=== PATIENT | female | born 1945 | race Caucasian/White ===

== ENCOUNTER 2018-01-29 19:21 | Observation (INO) | payer BC ==
[2018-01-29 20:39] LABS: INR 1.03 (0.77-1.02)
[2018-01-29 20:59] LABS: ABS Basophils 0 10^3/ul (0-0.2); ABS Eosinophils 0 10^3/ul (0-0.6); ABS Lymphocytes 1.1 10^3/ul (1.0-4.8); ABS Monocytes 0.3 10^3/ul (0-0.8); ABS Neutrophils 1.8 10^3/ul (1.5-7.7); ABS Nucleated RBC 0 10^3/ul; Eosinophil % 1.5 % (0-6); Hematocrit 34 % (35-47); Hemoglobin 11.5 g/dl (12.0-16.0); Lymphocyte % 33.6 % (25-47); Mean Corpuscular HGB Conc 34 g/dl (31-36); Mean Corpuscular Hemoglobin 30 pg (27-31); Mean Corpuscular Volume 90 fL (80-97); Mean Platelet Volume 8.9 um3 (7.4-10.4); Nucleated Red Blood Cells % 0.2; Platelet Count 95 10^3/ul (150-450); Red Blood Count 3.78 10^6/ul (4.0-5.4); Red Cell Distribution Width 15 % (10.5-15); White Blood Count 3.2 10^3/ul (3.5-10.8)
--- NOTE | 2018-01-29 21:08 | RAD ---
INDICATION: Weakness and lightheadedness COMPARISON: CT of the brain August 31, 2008 TECHNIQUE: Contiguous axial sections of the brain were obtained from the skull base to the vertex without contrast. FINDINGS: The ventricles, cisterns and sulci are within normal limits. The alvarado-white matter differentiation is adequately maintained and there is no sulcal effacement. No significant focal abnormality or mass effect is present. There is no evidence for intracranial hemorrhage. No significant focal osseous abnormality is present. The visualized portion of the paranasal sinuses appear clear. The mastoid air cells are well aerated bilaterally. IMPRESSION: Normal CT of the brain.
[2018-01-29 22:20] LABS: Urine Appearance Clear; Urine Blood Negative (Negative); Urine Color Yellow; Urine Ketones Negative (Negative); Urine Protein Negative (Negative); Urine Specific Gravity 1.009 (1.010-1.030); Urine Urobilinogen Negative (Negative)
[2018-01-29] MEDS ORDERED: Clopidogrel TAB* 75 MG PO ONE (22:24)
[2018-01-29] MEDS ORDERED: Aspirin TAB* 325 MG PO ONE (22:24)
--- NOTE | 2018-01-29 22:28 | ED ---
Oly Johnson Emily, scribed for Tank Lane MD on 01/29/18 at 1957 . Dizziness - HPI Summary HPI Summary: This patient is a 72 year old F presenting to [facility] accompanied by daughter with a chief complaint of lightheadedness that began at 1400 today. The patient rates the pain 0/10 in severity. Symptoms aggravated by positional changes. Symptoms alleviated by nothing. Patient reports hot flashes, shakiness, R knee hotness, R-sided facial burning, and R-sided blurred vision. Patient denies nausea, vomiting, and diarrhea. - History Of Current Complaint Chief Complaint: EDDizziness Stated Complaint: WEAKNESS/LIGHT HEADED Time Seen by Provider: 01/29/18 19:47 Hx Obtained From: Patient Onset/Duration: Still Present Timing: Constant Severity Initially: Mild Severity Currently: Mild Character: Lightheaded Aggravating Factor(s): Position Change Alleviating Factor(s): Nothing Associated Signs And Symptoms: Positive: Other: - Positive hot flashes, shakiness, R knee "hotness", R-sided facial burning, and R-sided blurred vision. Negative nausea, vomiting, and diarrhea - Allergies/Home Medications Allergies/Adverse Reactions: Allergies Allergy/AdvReac Type Severity Reaction Status Date / Time Iodinated Contrast- Oral and Allergy Shortness Verified 01/29/18 19:29 IV Dye of Breath morphine Allergy Anxiety Verified 01/29/18 19:29 Home Medications: Home Medications Omeprazole [Omeprazole] 40 mg PO BID 01/29/18 [History Confirmed 01/29/18] Tramadol HCl [Tramadol HCl] 50 mg PO DAILY PRN 01/29/18 [History Confirmed 01/29] Zolpidem CR (NF) [Ambien CR (NF)] 12.5 mg PO BEDTIME PRN 01/29/18 [History Confirmed 01/29/18] PMH/Surg Hx/FS Hx/Imm Hx Previously Healthy: No Opthamlomology History: Denies: Hx Legally Blind EENT History: Denies: Hx Deafness - Cancer History Cancer Type, Location and Year: Bone CA. Lymphoma Infectious Disease History: No Infectious Disease History: Denies: Traveled Outside the [place] in Last 30 Days - Family History Known Family History: Positive: Cardiac Disease - Social History Occupation: Retired Lives: Alone Review of Systems Positive: Other - Positive hot flashes. Negative: Fever Positive: Blurred Vision Positive: Other - Positive knee "hotness" and R-sided facial "burning" Neurological: Other - Positive lightheadednes and "shakiness" All Other Systems Reviewed And Are Negative: Yes Physical Exam - Summary Physical Exam Summary: Appearance: The patient is well-nourished in no acute distress and in no acute pain. Skin: The skin is warm and dry and skin color reflects adequate perfusion. HEENT: The head is normocephalic and atraumatic. The pupils are equal and reactive. The conjunctivae are clear and without drainage. Nares are patent and without drainage. Mouth reveals moist mucous membranes and the throat is without erythema and exudate. The external ears are intact. The ear canals are patent and without drainage. The tympanic membranes are intact. Neck: the neck is supple with full range of motion and non-tender. There are no carotid bruits. There is no neck vein distension. Respiratory: Chest is non-tender. Lungs are clear to auscultation and breath sounds are symmetrical and equal. Cardiovascular: Heart is regular rate and rhythm. There is no murmur or rub auscultated. There is no peripheral edema and pulses are symmetrical and equal. Abdomen: The abdomen is soft and non-tender. There are normal bowel sounds heard in all four quadrants and there is no organomegaly palpated. Musculoskeletal: There is no back tenderness noted. Extremities are non-tender with full range of motion. There is good capillary refill. There is no peripheral edema or calf tenderness elicited. Neurological: Patient is alert and oriented to person, place and time. The patient has symmetrical motor strength in all four extremities. Cranial nerves are grossly intact. Deep tendon reflexes are symmetrical and equal in all four extremities. Psychiatric: The patient has an appropriate affect and does not exhibit any anxiety or depression. Triage Information Reviewed: Yes Vital Signs On Initial Exam: Initial Vitals Temp Pulse Resp BP Pulse Ox 98.4 F 83 16 144/82 99 01/29/18 19:25 01/29/18 19:25 01/29/18 19:25 01/29/18 19:25 01/29/18 19:25 Vital Signs Reviewed: Yes Diagnostics - Vital Signs Vital Signs Temp Pulse Resp BP Pulse Ox 01/29/18 19:25 98.4 F 83 16 144/82 99 - Laboratory Lab Results: Lab Results 01/29/18 01/29/18 01/29/18 Range/Units 20:27 20:27 20:27 WBC 3.2 L (3.5-10.8) 10^3/ul RBC 3.78 L (4.0-5.4) 10^6/ul Hgb 11.5 L (12.0-16.0) g/dl Hct 34 L (35-47) % MCV 90 (80-97) fL MCH 30 (27-31) pg MCHC 34 (31-36) g/dl RDW 15 (10.5-15) % Plt Count 95 L (150-450) 10^3/ul MPV 8.9 (7.4-10.4) um3 Neut % (Auto) 55.8 (38-83) % Lymph % (Auto) 33.6 (25-47) % [place] % (Auto) 8.4 H (0-7) % Eos % (Auto) 1.5 (0-6) % Baso % (Auto) 0.7 (0-2) % Absolute Neuts (auto) 1.8 (1.5-7.7) 10^3/ul Absolute Lymphs (auto) 1.1 (1.0-4.8) 10^3/ul Absolute Monos (auto) 0.3 (0-0.8) 10^3/ul Absolute Eos (auto) 0 (0-0.6) 10^3/ul Absolute Basos (auto) 0 (0-0.2) 10^3/ul Absolute Nucleated RBC 0 10^3/ul Nucleated RBC % 0.2 Hem Pathologist Commnt Pending INR (Anticoag Therapy) (0.77-1.02) Sodium 139 (139-145) mmol/L Potassium 3.7 (3.5-5.0) mmol/L Chloride 110 (101-111) mmol/L Carbon Dioxide 23 (22-32) mmol/L Anion Gap 6 (2-11) mmol/L BUN 10 (6-24) mg/dL Creatinine 0.55 (0.51-0.95) mg/dL Est GFR ( Amer) 140.1 (>60) Est GFR (Non-Af Amer) 109.0 (>60) BUN/Creatinine Ratio 18.2 (8-20) Glucose 77 (70-100) mg/dL Lactic Acid 1.0 (0.5-2.0) mmol/L Calcium 9.5 (8.6-10.3) mg/dL Magnesium 1.8 L (1.9-2.7) mg/dL Total Bilirubin 0.60 (0.2-1.0) mg/dL AST 37 (13-39) U/L ALT 19 (7-52) U/L Alkaline Phosphatase 88 (34-104) U/L Troponin I 0.01 (<0.04) ng/mL Total Protein 6.6 (6.4-8.9) g/dL Albumin 3.5 (3.2-5.2) g/dL Globulin 3.1 (2-4) g/dL Albumin/Globulin Ratio 1.1 (1-3) TSH 1.55 (0.34-5.60) mcIU/mL Urine Color Urine Appearance Urine pH (5-9) Ur Specific Sikes (1.010-1.030) Urine Protein (Negative) Urine Ketones (Negative) Urine Blood (Negative) Urine Nitrate (Negative) Urine Bilirubin (Negative) Urine Urobilinogen (Negative) Ur Leukocyte Esterase (Negative) Urine WBC (Auto) (Absent) Urine RBC (Auto) (Absent) Ur Squamous Epith Cells (Absent) Urine Bacteria (Absent) Urine Glucose (Negative) 01/29/18 01/29/18 Range/Units 20:27 21:53 WBC (3.5-10.8) 10^3/ul RBC (4.0-5.4) 10^6/ul Hgb (12.0-16.0) g/dl Hct (35-47) % MCV (80-97) fL MCH (27-31) pg MCHC (31-36) g/dl RDW (10.5-15) % Plt Count (150-450) 10^3/ul MPV (7.4-10.4) um3 Neut % (Auto) (38-83) % Lymph % (Auto) (25-47) % [place] % (Auto) (0-7) % Eos % (Auto) (0-6) % Baso % (Auto) (0-2) % Absolute Neuts (auto) (1.5-7.7) 10^3/ul Absolute Lymphs (auto) (1.0-4.8) 10^3/ul Absolute Monos (auto) (0-0.8) 10^3/ul Absolute Eos (auto) (0-0.6) 10^3/ul Absolute Basos (auto) (0-0.2) 10^3/ul Absolute Nucleated RBC 10^3/ul Nucleated RBC % Hem Pathologist Commnt INR (Anticoag Therapy) 1.03 H (0.77-1.02) Sodium (139-145) mmol/L Potassium (3.5-5.0) mmol/L Chloride (101-111) mmol/L Carbon Dioxide (22-32) mmol/L Anion Gap (2-11) mmol/L BUN (6-24) mg/dL Creatinine (0.51-0.95) mg/dL Est GFR ( Amer) (>60) Est GFR (Non-Af Amer) (>60) BUN/Creatinine Ratio (8-20) Glucose (70-100) mg/dL Lactic Acid (0.5-2.0) mmol/L Calcium (8.6-10.3) mg/dL Magnesium (1.9-2.7) mg/dL Total Bilirubin (0.2-1.0) mg/dL AST (13-39) U/L ALT (7-52) U/L Alkaline Phosphatase (34-104) U/L Troponin I (<0.04) ng/mL Total Protein (6.4-8.9) g/dL Albumin (3.2-5.2) g/dL Globulin (2-4) g/dL Albumin/Globulin Ratio (1-3) TSH (0.34-5.60) mcIU/mL Urine Color Yellow Urine Appearance Clear Urine pH 6.0 (5-9) Ur Specific Sikes 1.009 L (1.010-1.030) Urine Protein Negative (Negative) Urine Ketones Negative (Negative) Urine Blood Negative (Negative) Urine Nitrate Negative (Negative) Urine Bilirubin Negative (Negative) Urine Urobilinogen Negative (Negative) Ur Leukocyte Esterase 2+ A (Negative) Urine WBC (Auto) 1+(6-10/hpf) A (Absent) Urine RBC (Auto) Trace(0-2/hpf) (Absent) Ur Squamous Epith Cells Present A (Absent) Urine Bacteria Absent (Absent) Urine Glucose Negative (Negative) Result Diagrams: 01/29/18 20:27 01/29/18 20:27 Lab Statement: Any lab studies that have been ordered have been reviewed, and results considered in the medical decision making process. - CT Brain CT CT Interpretation Completed By: Radiologist - Brain CT reveals, per radiologist , normal CT of the brain. ED physician has reviewed this radiology report. - EKG 1941 Cardiac Rate: NL EKG Rhythm: Sinus Rhythm - [address] Segment: Normal Ectopy: None Dizzy Course/Dx - Course Course Of Treatment: Ms. Willett presented to the emergency department complaining of right-sided blurred vision, right-sided facial burning and intermittent right knee burning pain that began at about 1500 hrs. About an hour prior to that she felt suddenly very faint and shaky and her [id number] who is a nurse checked her pulse and found it to be irregular. She is in normal sinus rhythm here in the emergency department and labs and CT were obtained. A CT could not be obtained as she is allergic to contrast dye. I spoke with Dr. Castro who recommended admission and further workup. I spoke with Dr. Pa who is admitting the patient. - Diagnoses Provider Diagnoses: CVA (cerebral vascular accident) - Critical Care Time Critical Care Time: 30-74 min Discharge - Sign-Out/Discharge Documenting (check all that apply): Sign-Out Patient Signing out patient TO: Tank Silva - Pending consult with neurology - Discharge Plan Referrals: Liz Miller MD [Primary Care Provider] - The documentation as recorded by the Oly jansen Emily accurately reflects the service I personally performed and the decisions made by me, Tank Lane MD.
[2018-01-30] MEDS ORDERED: Zolpidem TAB* 10 MG PO PRN (00:28)
[2018-01-30] MEDS ORDERED: Acetaminophen TAB* 325 MG PO PRN (00:31)
[2018-01-30] MEDS: traMADol TAB* 50 MG PO PRN ×2 (02:47→21:30)
[2018-01-30] MEDS ORDERED: Omeprazole CAP* 20 MG PO SCH (06:00)
--- NOTE | 2018-01-30 10:01 | HP ---
HISTORY AND PHYSICAL: DATE OF ADMISSION: 01/29/18 PRIMARY CARE PROVIDER: Dr. Miller [facility] FOREIGN SERVICE TEACHER: Dr. Tiburcio Cortez HEALTHCARE PROXY: Her [id number], [place]. CODE STATUS: Full. SOURCE OF INFORMATION: History obtained from interview of the patient and her [id number]. RELIABILITY: Fair. HISTORY OF PRESENT ILLNESS: A 72-year-old female with past medical history of reported TIA as well as pulmonary embolism in 2005 and non-Hodgkin's lymphoma in 2006, status post chemotherapy, suspectedly complicated by cirrhosis and resulted esophageal varices, status post banding in October of this year, who had been in her usual state of health until approximately 2 p.m., started feeling lightheaded like she was in a daze for approximately 5 or 10 minutes, then followed by shaking in her hands and she felt cold. Her heart rate felt irregular to her [id number] who recently graduated nursing school. She felt like her right face became flushed on the right side that lasted 2 to 3 minutes and also involved the back of her right knee where she has had some chronic pain before. She noted that she has spent a lot of time outside and to me the burning was from being outside, however, she continued to feel groggy and later around 4 p.m. experienced right peripheral visual defect described as blurry vision in her periphery of her right eye for about 30 minutes. After discussion with her [id number], she decided to seek care in the emergency room. The presumptive diagnosis was a TIA. NIH stroke scale was 0 on presentation, however, clopidogrel and aspirin was recommended and declined by the patient given her history of known gastric ulcer and esophageal varices. She is very clear that she has been directed to decline any antiplatelets by her van driver. When seen by this author, all symptoms have resolved. She has no visual defects and feels back to her baseline. She no longer feels lightheaded or groggy. Approximately a week ago, she felt feverish with subjective temperature and sinus congestion, which has since improved. She denies dysuria or urinary frequency, but has endorsed urinary urgency as if she needs to be better hydrated. She has no chest pain, shortness of breath, nausea , vomiting, constipation, or diarrhea. She has had no cough or shortness of breath or chest pain. PAST MEDICAL HISTORY: 1. Pulmonary embolism in 2005. 2. TIA. 3. Non-Hodgkin's lymphoma in 2007, status post chemotherapy. 4. 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 5. She has a gastric ulcer. 6. Esophageal varices. 7. Cirrhosis. 8. Appendectomy. 9. Cholecystectomy. 10. Total hysterectomy. MEDICATIONS: 1. Omeprazole 40 mg twice daily. 2. Tramadol 25 mg in the evening. 3. Ambien CR 12.5 mg at night. ALLERGIES: INTRAVENOUS DYE, which causes hives. FAMILY HISTORY: CAD. SOCIAL HISTORY: No tobacco, but extensive exposure to secondhand smoke from her . No history of alcohol. REVIEW OF SYSTEMS: As per HPI. PHYSICAL EXAMINATION GENERAL: Interactive, pleasant, in no apparent distress. VITAL SIGNS: In the emergency room, 127/81, heart rate 75, respiratory rate is 16, she is 96% on room air, T-max is 98.4. HEENT: Her oropharynx is clear. She has moist mucous membranes. Her sclerae are anicteric. LUNGS: Clear to auscultation. HEART: She has a regular rate and rhythm. ABDOMEN: Soft, nontender, nondistended. EXTREMITIES: Warm and well perfused. NEUROLOGIC: She is alert and oriented x3. Her cranial nerves II through XII are intact. Her visual valdez are intact. There is no extinction to visual valdez. She has 5/5 strength throughout. Sensation to light touch intact throughout. She has mild pronator drift in the left arm. LABORATORY DATA: Labs reviewed largely benign. TSH 1.5. White blood cell count 3.2, hemoglobin 11.5, platelets 95. Did review brain CT. Impression: Normal CT of the brain. ASSESSMENT AND PLAN: This is a 72-year-old female presenting with constellation of symptoms including lightheadedness and right-sided facial paresthesia and right- sided peripheral vision changes, admitted to the hospital with a presumptive diagnosis of transient ischemic attack. 1. TIA. Most concerning in the setting of visual field change. Now resolved. Hindered from full dose Plavix as well as aspirin in the setting of known esophageal varices and gastric ulcer. Plan on monitoring on telemetry obtaining ultrasound of her carotids given contrast allergy and MRI of the brain. Unclear what findings would result to further intervention in the setting of contraindicated antiplatelet therapy. I could consider certainly carotid endarterectomy if she has notable obstruction or if she is found to have CVA and not a TIA, there could be an argument for the benefit of antiplatelet over the risk of bleeding, but that does not have to be decided at this time. We did discuss this together. Placed on Neuro checks overnight. 2. Gastric ulcers, continue omeprazole. 3. Cirrhosis, no intervention. 4. Esophageal varices, avoid antiplatelet therapy. 5. DVT prophylaxis, SCDs in the setting of above. [id number]/[facility] #: [id number] [facility] GENERAL HOSPITALErnesto
[2018-01-30] MEDS ORDERED: Magnesium Sulfate 1 GM IV* 1 GM/100 ML BAG IV ONE (14:00)
--- NOTE | 2018-01-30 15:08 | CONS ---
CONSULTATION REPORT: DATE OF CONSULT: 01/30/18 REFERRING PROVIDER: Dr. Pa. PRIMARY CARE PROVIDER: Dr. Liz Miller. She is an inpatient in room 443. CHIEF COMPLAINT: Transient sensory disturbance with visual disturbance. HISTORY OF PRESENT ILLNESS: Shayy Willett is a 72-year-old right-handed woman who was admitted yesterday when she experienced a sense of dizziness and some sensory and visual symptoms. She had been working in the garden in the late afternoon to avoid the heat for about 3 days. Last evening, she started to feel somewhat dizzy like she needed to sit down. She does not describe vertigo and she is not sure if she felt faint, but she felt she needed to sit down or she might lose consciousness or fall. She sat down and then started to feel a sense of warmth on the right side of her face and neck. Around the same time, she noted a sense of warmth in the right posterolateral knee where she has had some chronic pain. She did not notice any weakness. The sensory phenomenon resolved within 5 to at most 10 minutes. Around the same time, she noted a blurriness or fuzziness in her vision off in the right superior visual field. She could see, but it was just sort of blurry and dizzy and seemed to be in the right upper area. She did not cover or uncover either eye. That resolved in about 20 to 30 minutes, but was there in a more vague persistence gradually on and off for perhaps an hour. There was no headache associated. She has felt fine since. She has a complicated past medical history and I had seen her back in 2008 when she presented with right-sided numbness. There is also a more remote history of right-sided numbness possibly during chemotherapy for non- Hodgkin's lymphoma many years ago. I spoke with Dr. Lane on the phone last night and recommended aspirin and Plavix. It turns out the patient has cirrhosis with esophageal varices and gastrointestinal ulcers. She refused Plavix and aspirin appropriately. PAST MEDICAL HISTORY: Notable for non-Hodgkin's lymphoma, treated with CHOP chemotherapy and subsequently rituximab. She developed a pulmonary emboli and deep vein thrombosis and was on Coumadin. 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 She was on Coumadin for 10 years or so. It was stopped 3 years ago when she presented with upper gastrointestinal bleeding and found to have esophageal varices. She has had multiple varices banded over the last 3 years with the last just less than 6 months ago. She has had chronic low platelets she says, since her chemotherapy. 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 PAST SURGICAL HISTORY: Notable for appendectomy, cholecystectomy, hysterectomy. MEDICATIONS: At admission include: 1. Omeprazole 40 mg p.o. b.i.d. 2. Tramadol 25 mg p.o. q.h.s. p.r.n. knee pain. 3. Ambien CR 12.5 mg p.o. q.h.s. ALLERGIES: She is allergic to INTRAVENOUS CONTRAST DYE, which caused hives and may have been associated with thrombosis in her right arm. FAMILY HISTORY: Notable for coronary artery disease in several family members. SOCIAL HISTORY: She lives with her who is a heavy smoker, but she does not smoke. She does not drink alcohol at all. PHYSICAL EXAM: She is very thin. Temperature has been afebrile throughout her hospital stay, blood pressure running 102 systolic to 122 systolic/60 to 70 diastolic. Heart rate is in the 70s and currently seems regular. Respiratory rate 16 and oxygen saturation is 96% on room air. Skin is warm and dry. She has dilated veins in her right arm distal to the elbow. I do not see any jugular distention. Heart is in a regular rhythm without murmurs. Lungs are clear bilaterally. Carotid pulses are symmetrical and there are no bruits. She has a rubbery cyst subcutaneously in the left piece of her neck. She says they have been just "watching it" because of the risk of any attempted surgical intervention. On neurological exam, pupils react equally from about 3.5 to 2.5 mm symmetrically. Eye movements are normal. Funduscopic exam is normal. Visual valdez are full to confrontation in all 4 quadrants bilaterally. Facial musculature is symmetric. Facial sensation is symmetric to light touch. Palate and tongue are notable for slight deviation to the right with phonation but there is no dysarthria. Tongue protrudes in the midline and there is no fasciculations. Hearing is intact bilaterally and neck muscle bulk and strength are normal for her overall condition. Motor exam reveals normal tone and strength in the limbs. There is pain with testing about the right knee. There is no rigidity or spasticity. There is no rest or sustention tremor. There is no asterixis or myoclonus. Finger taps are normal in the hands. Sensory exam reveals a loss of light touch in the distal left foot. She says that has felt that way since she dropped a heavy object on her foot a couple of weeks ago. Sensory exam to vibration, light touch, and proprioception is otherwise normal. Reflexes are trace in the upper extremities and absent at knees and ankles. Plantar responses are flexor bilaterally. She is alert and oriented and an excellent historian. Memory is intact and language is fluent. She has normal attention, concentration, and adequate fund of knowledge. DIAGNOSTIC STUDIES/LAB DATA: Laboratory data includes a CT scan of the brain interpreted by radiologist as normal. I reviewed it and there are some areas which may be enlarged perivascular spaces as there is some hypodensity in the white matter but nothing discrete or well formed to suggest an infarction. Other laboratory data notable for CBC with white blood cell count 3.2, hemoglobin 11.5, platelet count 95,000. The last blood counts available in our computer records are back in 2008. Her chemistries are notable for magnesium of 1.8 and otherwise, a normal chemistry profile including liver enzymes. Her INR yesterday at presentation was 1.03. Urinalysis is unremarkable. IMPRESSION: Possible transient ischemic attack in the left hemisphere in a patient with multiple vascular and other medical complications. She seems to be at high risk of gastrointestinal bleeding on even aspirin therapy and I agree with holding off on antiplatelet therapy in spite of the possibility that this might have been a transient ischemic attack. I think she should have telemetry for at least another night and MRI imaging. Dr. Pa noted that if she had severe carotid stenosis resulting in her symptoms that might be amenable to surgical approach and I agree. An MR angiogram of the head and ultrasound of the neck has been ordered. She also has a transthoracic echocardiogram is pending. Her blood pressure is adequate. I would recommend that she be maintained well hydrated. As far as her lipids go, her cholesterol is 113 and LDL 54, so I see no role for statins here. I will continue to follow her along with you. [id number]/[facility] #: [id number]
--- NOTE | 2018-01-30 16:14 | RAD ---
Indication: Lightheadedness and RIGHT-sided facial paresthesia as well as RIGHT-sided peripheral visual changes. Comparison: January 29, 2018 CT. Technique: [place] 1.5 Vane [id number] with GEM suite. MRI brain without contrast. Report: Diffusion series is negative for acute or subacute ischemia. Susceptibility series is negative for stigmata of hemosiderin deposition to indicate previous hemorrhage. Mild prominence of the cerebral sulci. Unremarkable ventricles and basal cisterns. Small burden of nonspecific periventricular and subcortical white matter T2 FLAIR hyperintense lesions at the cerebral hemispheres. Negative for mass effect. No intra or extra-axial fluid collection evident. Unremarkable orbital contents. Preserved major intracranial flow-voids. Clear paranasal sinuses and mastoid air spaces. Unremarkable scalp. IMPRESSION: 1. Mild involutional change. 2. Small burden of nonspecific T2 hyperintense periventricular and subcortical white matter lesions without mass effect. The differential includes small vessel ischemic disease, sequela of previous inflammatory foci, demyelinating disease in the appropriate clinical context, and potentially lesions associated with migraine headaches. 3. No evidence for acute or subacute ischemia.
--- NOTE | 2018-01-30 16:18 | RAD ---
Indication: Lightheadedness, RIGHT-sided facial paresthesia and RIGHT-sided peripheral vision changes. Comparison: Noncontrast MRI of the same date. Technique: [place] 1.5 Vane [id number] with GEM suite. MR angiography 3-D [id number] data was obtained with rotational display of the [place] and posterior fossa arteries. Report: Unremarkable intracranial internal carotid arteries as well as the M1 and M2 segments of the middle cerebral arteries and A1 and A2 segments of the anterior cerebral arteries. No anterior communicating artery visualized. Both vertebral arteries contribute to a small caliber basilar artery which terminates in the superior cerebellar arteries. Patent posterior cerebral arteries are supplied by the anterior circulation via dominant posterior communicating arteries consistent with persistent origin variant. No intracranial aneurysms visualized. IMPRESSION: Normal variation as described without evidence for central intracranial arterial occlusion or stenosis.
--- NOTE | 2018-01-30 16:49 | PN ---
Subjective Date of Service: 01/30/18 Interval History: Mrs. Guerra was seen and examined earlier today. Reports feeling a little better. Still has some numbness to right face with some blurred peripheral vision at right eye. Denies dizziness or weakness. No headaches, syncope, chest pain, palpitations or SOB. She was seen earlier this morning by Dr. Castro for consultation. She is aware the potential bleeding risks of using anticoagulation therapy in her case with known hx esophageal varices, and she wishes not to proceed with any intervention at this time. Otherwsie, she has no new complaints. Family History: Unchanged from Admission Social History: Unchanged from Admission Past Medical History: Unchanged from Admission Objective Active Medications: Acetaminophen (Tylenol Tab*) 650 mg PO Q6H PRN PRN Reason: PAIN Omeprazole (Prilosec Cap*) 20 mg PO BID NANCY Tramadol HCl (Ultram*) 50 mg PO DAILY PRN PRN Reason: PAIN Last Admin: 01/30/18 02:47 Dose: 50 mg Zolpidem Tartrate (Ambien Tab*) 10 mg PO BEDTIME PRN PRN Reason: INSOMNIA Last Admin: 01/30/18 02:48 Dose: 10 mg Vital Signs - 8 hr 01/30/18 01/30/18 01/30/18 11:48 11:49 16:17 Temperature 98.8 F 97.6 F Pulse Rate 65 69 Respiratory 16 16 Rate Blood Pressure 110/58 97/56 135/73 (mmHg) O2 Sat by Pulse 95 100 Oximetry Oxygen Devices in Use Now: None Appearance: Appears comfortable and in NAD Eyes: No Scleral Icterus, PERRLA Ears/Nose/Mouth/Throat: Clear Oropharnyx, Mucous Membranes Moist Neck: NL Appearance and Movements; NL JVP, Trachea Midline Respiratory: Symmetrical Chest Expansion and Respiratory Effort, Clear to Auscultation Cardiovascular: NL Sounds; No Murmurs; No JVD, RRR Abdominal: NL Sounds; No Tenderness; No Distention Extremities: No Edema Skin: No Rash or Ulcers Neurological: Alert and Oriented x 3, NL Sensation, NL Muscle Strength and Tone Nutrition: Taking PO's Result Diagrams: 01/29/18 20:27 01/29/18 20:27 Additional Lab and Data: Lab Results 01/29/18 01/29/18 01/29/18 Range/Units 20:27 20:27 20:27 WBC 3.2 L (3.5-10.8) 10^3/ul RBC 3.78 L (4.0-5.4) 10^6/ul Hgb 11.5 L (12.0-16.0) g/dl Hct 34 L (35-47) % MCV 90 (80-97) fL MCH 30 (27-31) pg MCHC 34 (31-36) g/dl RDW 15 (10.5-15) % Plt Count 95 L (150-450) 10^3/ul MPV 8.9 (7.4-10.4) um3 Neut % (Auto) 55.8 (38-83) % Lymph % (Auto) 33.6 (25-47) % [place] % (Auto) 8.4 H (0-7) % Eos % (Auto) 1.5 (0-6) % Baso % (Auto) 0.7 (0-2) % Absolute Neuts (auto) 1.8 (1.5-7.7) 10^3/ul Absolute Lymphs (auto) 1.1 (1.0-4.8) 10^3/ul Absolute Monos (auto) 0.3 (0-0.8) 10^3/ul Absolute Eos (auto) 0 (0-0.6) 10^3/ul Absolute Basos (auto) 0 (0-0.2) 10^3/ul Absolute Nucleated RBC 0 10^3/ul Nucleated RBC % 0.2 Hem Pathologist Commnt Pending INR (Anticoag Therapy) (0.77-1.02) Sodium 139 (139-145) mmol/L Potassium 3.7 (3.5-5.0) mmol/L Chloride 110 (101-111) mmol/L Carbon Dioxide 23 (22-32) mmol/L Anion Gap 6 (2-11) mmol/L BUN 10 (6-24) mg/dL Creatinine 0.55 (0.51-0.95) mg/dL Est GFR ( Amer) 140.1 (>60) Est GFR (Non-Af Amer) 109.0 (>60) BUN/Creatinine Ratio 18.2 (8-20) Glucose 77 (70-100) mg/dL Lactic Acid 1.0 (0.5-2.0) mmol/L Calcium 9.5 (8.6-10.3) mg/dL Magnesium 1.8 L (1.9-2.7) mg/dL Total Bilirubin 0.60 (0.2-1.0) mg/dL AST 37 (13-39) U/L ALT 19 (7-52) U/L Alkaline Phosphatase 88 (34-104) U/L Troponin I 0.01 (<0.04) ng/mL Total Protein 6.6 (6.4-8.9) g/dL Albumin 3.5 (3.2-5.2) g/dL Globulin 3.1 (2-4) g/dL Albumin/Globulin Ratio 1.1 (1-3) TSH 1.55 (0.34-5.60) mcIU/mL Urine Color Urine Appearance Urine pH (5-9) Ur Specific [place] (1.010-1.030) Urine Protein (Negative) Urine Ketones (Negative) Urine Blood (Negative) Urine Nitrate (Negative) Urine Bilirubin (Negative) Urine Urobilinogen (Negative) Ur Leukocyte Esterase (Negative) Urine WBC (Auto) (Absent) Urine RBC (Auto) (Absent) Ur Squamous Epith Cells (Absent) Urine Bacteria (Absent) Urine Glucose (Negative) 01/29/18 01/29/18 Range/Units 20:27 21:53 WBC (3.5-10.8) 10^3/ul RBC (4.0-5.4) 10^6/ul Hgb (12.0-16.0) g/dl Hct (35-47) % MCV (80-97) fL MCH (27-31) pg MCHC (31-36) g/dl RDW (10.5-15) % Plt Count (150-450) 10^3/ul MPV (7.4-10.4) um3 Neut % (Auto) (38-83) % Lymph % (Auto) (25-47) % [place] % (Auto) (0-7) % Eos % (Auto) (0-6) % Baso % (Auto) (0-2) % Absolute Neuts (auto) (1.5-7.7) 10^3/ul Absolute Lymphs (auto) (1.0-4.8) 10^3/ul Absolute Monos (auto) (0-0.8) 10^3/ul Absolute Eos (auto) (0-0.6) 10^3/ul Absolute Basos (auto) (0-0.2) 10^3/ul Absolute Nucleated RBC 10^3/ul Nucleated RBC % Hem Pathologist Commnt INR (Anticoag Therapy) 1.03 H (0.77-1.02) Sodium (139-145) mmol/L Potassium (3.5-5.0) mmol/L Chloride (101-111) mmol/L Carbon Dioxide (22-32) mmol/L Anion Gap (2-11) mmol/L BUN (6-24) mg/dL Creatinine (0.51-0.95) mg/dL Est GFR ( Amer) (>60) Est GFR (Non-Af Amer) (>60) BUN/Creatinine Ratio (8-20) Glucose (70-100) mg/dL Lactic Acid (0.5-2.0) mmol/L Calcium (8.6-10.3) mg/dL Magnesium (1.9-2.7) mg/dL Total Bilirubin (0.2-1.0) mg/dL AST (13-39) U/L ALT (7-52) U/L Alkaline Phosphatase (34-104) U/L Troponin I (<0.04) ng/mL Total Protein (6.4-8.9) g/dL Albumin (3.2-5.2) g/dL Globulin (2-4) g/dL Albumin/Globulin Ratio (1-3) TSH (0.34-5.60) mcIU/mL Urine Color Yellow Urine Appearance Clear Urine pH 6.0 (5-9) Ur Specific [place] 1.009 L (1.010-1.030) Urine Protein Negative (Negative) Urine Ketones Negative (Negative) Urine Blood Negative (Negative) Urine Nitrate Negative (Negative) Urine Bilirubin Negative (Negative) Urine Urobilinogen Negative (Negative) Ur Leukocyte Esterase 2+ A (Negative) Urine WBC (Auto) 1+(6-10/hpf) A (Absent) Urine RBC (Auto) Trace(0-2/hpf) (Absent) Ur Squamous Epith Cells Present A (Absent) Urine Bacteria Absent (Absent) Urine Glucose Negative (Negative) Diagnostic Imaging: Patient Name: VIRIDIANA GUERRA Medical Record#: [id number] Ordering Physician: Tank Lane MD Acct.#: [id number] : 1945 Age: 72 Sex: F Location: EMERGENCY DEPARTMENT Exam Date: 01/29/182008 ADM Status: REG ER Order Information: CT BRAIN WO Accession Number: [id number] CPT: 72599 INDICATION: Weakness and lightheadedness COMPARISON: CT of the brain August 31, 2008 IMPRESSION: Normal CT of the brain. <Electronically signed by Chencho Keating MD in OV> 01/29/182103 Dictated By: Chencho Keating MD Dictated Date/Time: 01/29/182103 Transcribed Date/Time: 01/29/182102 Copy to: Order Information: MRI BRAIN W/O Accession Number: [id number] CPT: 89918 Indication: Lightheadedness and RIGHT-sided facial paresthesia as well as RIGHT- sided peripheral visual changes. Comparison: January 29, 2018 CT. IMPRESSION: 1. Mild involutional change. 2. Small burden of nonspecific T2 hyperintense periventricular and subcortical white matter lesions without mass effect. The differential includes small vessel ischemic disease, sequela of previous inflammatory foci, demyelinating disease in the appropriate clinical context, and potentially lesions associated with migraine headaches. 3. No evidence for acute or subacute ischemia. <Electronically signed by Sahil Israel MD in OV> 01/30/18 1611 Dictated By: Sahil Israel MD Order Information: MRA HEAD W/O Accession Number: [id number] CPT: 67362 Indication: Lightheadedness, RIGHT-sided facial paresthesia and RIGHT-sided peripheral vision changes. Comparison: Noncontrast MRI of the same date. IMPRESSION: Normal variation as described without evidence for central intracranial arterial occlusion or stenosis. <Electronically signed by Sahil Israel MD in OV> 01/30/181614 Dictated By: Sahil Israel MD Dictated Date/Time: 01/30/181614 EKG Data: EKG INTERPRETATION ECG Report Patient Name VIRIDIANA GUERRA Birthdate 1945 Sex F Order Number [id number] Date of ECG 01/29/2018 19:42:18 Interpretation Sinus rhythm.normal P axis, V-rate 60- 99 Borderline left axis deviation.QRS axis (-15,-29) Borderline low voltage, extremity leads.all extremity leads <0.6mV - OTHERWISE NORMAL ECG - ECG NEEDS E-SIGNING Assess/Plan/Problems-Billing Assessment: A 72 y/o female with PMHx non-Hodgkin's lymphoma complicated with liver cirrhosis and esophageal varices, who presented to ED with vague symptoms of right sided facial numbness and right sided peripheral visual changes, who was admitted with presumed TIA. - Patient Problems (1) TIA (transient ischemic attack) Current Visit: Yes Status: Acute Priority: High Comment: - Still with intermittent symptoms of right-sided facial parasthesia and peripheral visual changes. - Imaging studies with no ischemic changes noted - Await carotid doppler findings - Even at the event of finding any possible occlusion, antiplatlets therapy would be still contra-indicated giving her hx esophageal varices and high risk for major bleeding event. - Continue close monitoring in Tele - Neuro checks q4hrs (2) Hx of non-Hodgkin's lymphoma Current Visit: Yes Status: Acute Comment: - stable, in Remission (3) Liver cirrhosis Current Visit: Yes Status: Acute Comment: - secondary to chemotherapy back in 2006 - LFTs WNL - stable (4) Esophageal varices Current Visit: Yes Status: Acute Comment: - stable - No evidence of UGI bleed - Avoid antiplatlet therapy (5) Hx pulmonary embolism Current Visit: Yes Status: Acute Comment: - stable (6) PUD (peptic ulcer disease) Current Visit: Yes Status: Acute Comment: - Continue PPI coverage (7) DVT prophylaxis Current Visit: Yes Status: Acute Comment: - Mechanical SCDs only in the setting of above (8) Full code status Current Visit: Yes Status: Acute Status and Disposition: Inpatient. Anticipate discharge when medically stable.
[2018-01-30] MEDS: Omeprazole CAP* 20 MG PO SCH (21:30)
[2018-01-30] MEDS: Zolpidem TAB* 5 MG PO PRN (22:53)
[2018-01-31 05:52] LABS: ABS Basophils 0 10^3/ul (0-0.2); ABS Eosinophils 0.1 10^3/ul (0-0.6); ABS Lymphocytes 0.9 10^3/ul (1.0-4.8); ABS Monocytes 0.3 10^3/ul (0-0.8); ABS Neutrophils 1.3 10^3/ul (1.5-7.7); ABS Nucleated RBC 0 10^3/ul; Eosinophil % 2.8 % (0-6); Hematocrit 33 % (35-47); Hemoglobin 11.4 g/dl (12.0-16.0); Lymphocyte % 35.1 % (25-47); Mean Corpuscular HGB Conc 34 g/dl (31-36); Mean Corpuscular Hemoglobin 31 pg (27-31); Mean Corpuscular Volume 90 fL (80-97); Mean Platelet Volume 8.9 um3 (7.4-10.4); Nucleated Red Blood Cells % 0.1; Platelet Count 84 10^3/ul (150-450); Red Cell Distribution Width 15 % (10.5-15); White Blood Count 2.7 10^3/ul (3.5-10.8)
[2018-01-31 06:06] LABS: EGFR Non-African American 121.6 (>60)
[2018-01-31] MEDS: Omeprazole CAP* 20 MG PO SCH ×2 (07:48→19:57)
--- NOTE | 2018-01-31 10:22 | PN ---
Subjective Date of Service: 01/31/18 Interval History: Mrs. Willett has no complaints today. Her right sided facial numbness has improved. Still with occasional right peripheral vision blurriness, but improving as well. Denies headaches, jaw pain, dizziness, weakness, chest pain or SOB. Ambulatory. Discussed with her imaging studies results. Transthoracic echo and carotis doppler still pending. Family History: Unchanged from Admission Social History: Unchanged from Admission Past Medical History: Unchanged from Admission Objective Active Medications: Acetaminophen (Tylenol Tab*) 650 mg PO Q6H PRN PRN Reason: PAIN Omeprazole (Prilosec Cap*) 20 mg PO BID NANCY Last Admin: 01/31/18 07:48 Dose: 20 mg Tramadol HCl (Ultram*) 50 mg PO DAILY PRN PRN Reason: PAIN Last Admin: 01/30/18 21:30 Dose: 50 mg Zolpidem Tartrate (Ambien Tab*) 5 mg PO BEDTIME PRN PRN Reason: INSOMNIA Last Admin: 01/30/18 22:53 Dose: 5 mg Vital Signs - 8 hr 01/31/18 01/31/18 03:22 07:47 Temperature 98.2 F 99.5 F Pulse Rate 77 65 Respiratory 16 16 Rate Blood Pressure 105/62 105/62 (mmHg) O2 Sat by Pulse 97 95 Oximetry Oxygen Devices in Use Now: None Appearance: Appears comfortable and in NAD. Eyes: No Scleral Icterus, PERRLA Ears/Nose/Mouth/Throat: Clear Oropharnyx, Mucous Membranes Moist Neck: NL Appearance and Movements; NL JVP, Trachea Midline Respiratory: Symmetrical Chest Expansion and Respiratory Effort, Clear to Auscultation Cardiovascular: NL Sounds; No Murmurs; No JVD, RRR Abdominal: NL Sounds; No Tenderness; No Distention Extremities: No Edema Skin: No Rash or Ulcers Neurological: Alert and Oriented x 3, NL Sensation, NL Muscle Strength and Tone , - - Hand director cost equal bilaterally. Nutrition: Taking PO's Result Diagrams: 01/31/18 05:24 01/31/18 05:24 Additional Lab and Data: Lab Results 01/29/18 01/29/18 01/29/18 Range/Units 20:27 20:27 20:27 WBC 3.2 L (3.5-10.8) 10^3/ul RBC 3.78 L (4.0-5.4) 10^6/ul Hgb 11.5 L (12.0-16.0) g/dl Hct 34 L (35-47) % MCV 90 (80-97) fL MCH 30 (27-31) pg MCHC 34 (31-36) g/dl RDW 15 (10.5-15) % Plt Count 95 L (150-450) 10^3/ul MPV 8.9 (7.4-10.4) um3 Neut % (Auto) 55.8 (38-83) % Lymph % (Auto) 33.6 (25-47) % [place] % (Auto) 8.4 H (0-7) % Eos % (Auto) 1.5 (0-6) % Baso % (Auto) 0.7 (0-2) % Absolute Neuts (auto) 1.8 (1.5-7.7) 10^3/ul Absolute Lymphs (auto) 1.1 (1.0-4.8) 10^3/ul Absolute Monos (auto) 0.3 (0-0.8) 10^3/ul Absolute Eos (auto) 0 (0-0.6) 10^3/ul Absolute Basos (auto) 0 (0-0.2) 10^3/ul Absolute Nucleated RBC 0 10^3/ul Nucleated RBC % 0.2 Hem Pathologist Commnt Pending INR (Anticoag Therapy) (0.77-1.02) Sodium 139 (139-145) mmol/L Potassium 3.7 (3.5-5.0) mmol/L Chloride 110 (101-111) mmol/L Carbon Dioxide 23 (22-32) mmol/L Anion Gap 6 (2-11) mmol/L BUN 10 (6-24) mg/dL Creatinine 0.55 (0.51-0.95) mg/dL Est GFR ( Amer) 140.1 (>60) Est GFR (Non-Af Amer) 109.0 (>60) BUN/Creatinine Ratio 18.2 (8-20) Glucose 77 (70-100) mg/dL Lactic Acid 1.0 (0.5-2.0) mmol/L Calcium 9.5 (8.6-10.3) mg/dL Magnesium 1.8 L (1.9-2.7) mg/dL Total Bilirubin 0.60 (0.2-1.0) mg/dL AST 37 (13-39) U/L ALT 19 (7-52) U/L Alkaline Phosphatase 88 (34-104) U/L Troponin I 0.01 (<0.04) ng/mL Total Protein 6.6 (6.4-8.9) g/dL Albumin 3.5 (3.2-5.2) g/dL Globulin 3.1 (2-4) g/dL Albumin/Globulin Ratio 1.1 (1-3) TSH 1.55 (0.34-5.60) mcIU/mL Urine Color Urine Appearance Urine pH (5-9) Ur Specific [place] (1.010-1.030) Urine Protein (Negative) Urine Ketones (Negative) Urine Blood (Negative) Urine Nitrate (Negative) Urine Bilirubin (Negative) Urine Urobilinogen (Negative) Ur Leukocyte Esterase (Negative) Urine WBC (Auto) (Absent) Urine RBC (Auto) (Absent) Ur Squamous Epith Cells (Absent) Urine Bacteria (Absent) Urine Glucose (Negative) 01/29/18 01/29/18 Range/Units 20:27 21:53 WBC (3.5-10.8) 10^3/ul RBC (4.0-5.4) 10^6/ul Hgb (12.0-16.0) g/dl Hct (35-47) % MCV (80-97) fL MCH (27-31) pg MCHC (31-36) g/dl RDW (10.5-15) % Plt Count (150-450) 10^3/ul MPV (7.4-10.4) um3 Neut % (Auto) (38-83) % Lymph % (Auto) (25-47) % [place] % (Auto) (0-7) % Eos % (Auto) (0-6) % Baso % (Auto) (0-2) % Absolute Neuts (auto) (1.5-7.7) 10^3/ul Absolute Lymphs (auto) (1.0-4.8) 10^3/ul Absolute Monos (auto) (0-0.8) 10^3/ul Absolute Eos (auto) (0-0.6) 10^3/ul Absolute Basos (auto) (0-0.2) 10^3/ul Absolute Nucleated RBC 10^3/ul Nucleated RBC % Hem Pathologist Commnt INR (Anticoag Therapy) 1.03 H (0.77-1.02) Sodium (139-145) mmol/L Potassium (3.5-5.0) mmol/L Chloride (101-111) mmol/L Carbon Dioxide (22-32) mmol/L Anion Gap (2-11) mmol/L BUN (6-24) mg/dL Creatinine (0.51-0.95) mg/dL Est GFR ( Amer) (>60) Est GFR (Non-Af Amer) (>60) BUN/Creatinine Ratio (8-20) Glucose (70-100) mg/dL Lactic Acid (0.5-2.0) mmol/L Calcium (8.6-10.3) mg/dL Magnesium (1.9-2.7) mg/dL Total Bilirubin (0.2-1.0) mg/dL AST (13-39) U/L ALT (7-52) U/L Alkaline Phosphatase (34-104) U/L Troponin I (<0.04) ng/mL Total Protein (6.4-8.9) g/dL Albumin (3.2-5.2) g/dL Globulin (2-4) g/dL Albumin/Globulin Ratio (1-3) TSH (0.34-5.60) mcIU/mL Urine Color Yellow Urine Appearance Clear Urine pH 6.0 (5-9) Ur Specific [place] 1.009 L (1.010-1.030) Urine Protein Negative (Negative) Urine Ketones Negative (Negative) Urine Blood Negative (Negative) Urine Nitrate Negative (Negative) Urine Bilirubin Negative (Negative) Urine Urobilinogen Negative (Negative) Ur Leukocyte Esterase 2+ A (Negative) Urine WBC (Auto) 1+(6-10/hpf) A (Absent) Urine RBC (Auto) Trace(0-2/hpf) (Absent) Ur Squamous Epith Cells Present A (Absent) Urine Bacteria Absent (Absent) Urine Glucose Negative (Negative) Microbiology and Other Data: . Diagnostic Imaging: . EKG Data: . Assess/Plan/Problems-Billing Assessment: A 72 y/o female with PMHx non-Hodgkin's lymphoma complicated with liver cirrhosis and esophageal varices, who presented to ED with vague symptoms of right sided facial numbness and right sided peripheral visual changes, who was admitted with presumed TIA. - Patient Problems (1) TIA (transient ischemic attack) Current Visit: Yes Status: Acute Priority: High Comment: - Still with intermittent symptoms of right-sided facial parasthesia and peripheral visual changes. Clinically improving. - Imaging studies with no ischemic changes noted - Await carotid doppler findings - Even at the event of finding any possible occlusion, antiplatlets therapy would be still contra-indicated giving her hx esophageal varices and high risk for major bleeding event. - Continue close monitoring in Tele - Neuro checks q4hrs - ESR checked, normal, ruled out any possibility of temporal arteritis, espicially with no complaints of temporal pain or headaches. (2) Hx of non-Hodgkin's lymphoma Current Visit: Yes Status: Acute Comment: - stable, in Remission (3) Liver cirrhosis Current Visit: Yes Status: Acute Comment: - secondary to chemotherapy back in 2006 - LFTs WNL - stable (4) Esophageal varices Current Visit: Yes Status: Acute Comment: - stable - No evidence of UGI bleed - Avoid antiplatlet therapy (5) Hx pulmonary embolism Current Visit: Yes Status: Acute Comment: - stable (6) PUD (peptic ulcer disease) Current Visit: Yes Status: Acute Comment: - Continue PPI coverage (7) DVT prophylaxis Current Visit: Yes Status: Acute Comment: - Mechanical SCDs only in the setting of above (8) Full code status Current Visit: Yes Status: Acute Status and Disposition: Inpatient. Anticipate discharge when medically stable.
--- NOTE | 2018-01-31 16:22 | ECHO ---
Patient: VIRIDIANA GUERRA [facility] Rec#: [id number] : 1945 Date: 01/31/2018 Age: 72y Height: 152.4 cm / 60.0 in Weight: 58.1 kg / 128.1 lbs Sex: F BSA: 1.5 Room#: [facility] Admit Date#: 01/30/2018 Type: Inpatient Referring: Ramin Pa MD Reading: Porter Arrieta MD Lopper: Marci Crews RN RDCS CC: Liz Miller MD Transthoracic Echocardiogram Indication: TIA BP: 105/62 HR: 63 Rhythm: NSR Findings History: PE, TIA, Non-Hodgkin's lymphoma, chemotherapy, gastric ulcer, esophageal varices, cirrhosis Technical Comments: The study quality is fair. Left Ventricle: The left ventricular chamber size is normal. There is no left ventricular hypertrophy. Global left ventricular wall motion and contractility are within normal limits. There is normal left ventricular systolic function. The estimated ejection fraction is 60-65%. There is an E to A reversal in the mitral valve flow pattern suggestive of diastolic dysfunction. Left Atrium: The left atrium is mildly dilated. Right Ventricle: The right ventricular chamber size and systolic function are within normal limits. Right Atrium: The right atrial cavity size is normal. Aortic Valve: The aortic valve is trileaflet. The aortic valve leaflets are moderately thickened. There is evidence of aortic sclerosis without stenosis. There is no evidence of aortic regurgitation. Mitral Valve: There is mitral annular calcification. The mitral valve leaflets are mildly thickened. There is mild mitral regurgitation. There is no evidence of mitral stenosis. Tricuspid Valve: The tricuspid valve leaflets are normal. There is mild to moderate tricuspid regurgitation. No pulmonary hypertension is noted. There is no tricuspid stenosis. Pulmonic Valve: The pulmonic valve appears normal. There is a trace pulmonic regurgitation. There is no pulmonic stenosis. Pericardium: There is no significant pericardial effusion. Aorta: There is mild dilatation of the ascending aorta. There is no dilatation of the aortic arch. There is no dilation of the aortic root. Pulmonary Artery: The main pulmonary artery appears normal. Venous: The inferior vena cava appears normal in size. There is a greater than 50% respiratory change in the inferior vena cava dimension. Conclusions Global left ventricular wall motion and contractility are within normal limits. There is normal left ventricular systolic function. The estimated ejection fraction is 60-65%. There is evidence of aortic sclerosis without stenosis. There is no evidence of aortic regurgitation. There is mild mitral regurgitation. There is mild to moderate tricuspid regurgitation. No pulmonary hypertension is noted. There is no significant pericardial effusion. Measurements Name Value Normal Range RVDdMajor (2D) 3.8 cm (2.2 - 4.4) RAd ISD 4CH 4.7 cm (3.4 - 4.9) RA (A4C)W 3.4 cm (2.9 - 4.6) IVSd (2D) 1 cm (0.6 - 1) LVPWd (2D) 0.9 cm (0.6 - 1) LVIDd (2D) 4.5 cm (3.6 - 5.4) LVIDs (2D) 2.7 cm - LV FS (2D) 40 % (25 - 45) Aortic Annulus 1.9 cm (1.4 - 2.6) Ao root diameter (2D) 3.2 cm (2.1 - 3.5) Ascending Ao 3.5 cm (2.1 - 3.4) Aortic arch 2.1 cm (1.8 - 3.4) LA dimension (AP) 2D 2.7 cm (2.3 - 3.8) LAd ISD 4CH 4.5 cm (2.9 - 5.3) LA ISD 4CH W 3.6 cm (2.5 - 4.5) Name Value Normal Range LA ESV SP 4CH (A/L) 44 ml - LA ESV SP 2CH (A/L) 54 ml - LA ESV BP (A/L) 56 ml - LA ESV BP (A/L) index 36 ml/m2 - LA ESV SP 4CH (MOD) 40 ml - LA ESV SP 2CH (MOD) 50 ml - Name Value Normal Range MV E-wave Vmax 0.44 m/sec - MV deceleration time 414 msec - MV A-wave Vmax 0.69 m/sec - MV E:A ratio 0.63 ratio - LV septal e' Vmax 0.06 m/sec - LV lateral e' Vmax 0.07 m/sec - LV E:e' septal ratio 7.3 ratio - LV E:e' lateral ratio 6.3 ratio - Name Value Normal Range AV Vmax 1.5 m/sec - AV VTI 31.8 cm - AV peak gradient 8.8 mmHg - AV mean gradient 5.2 mmHg - LVOT Vmax 0.8 m/sec - LVOT VTI 18.1 cm - LVOT peak gradient 2.6 mmHg - LVOT mean gradient 1.7 mmHg - ENRIQUE Vmax 0.69 m/sec - Name Value Normal Range TR Vmax 2.3 m/sec - TR peak gradient 21 mmHg - RAP 3 mmHg - RVSP 24 mmHg - IVC diameter 2 cm - Name Value Normal Range PV Vmax 0.78 m/sec -
--- NOTE | 2018-01-31 17:08 | RAD ---
INDICATION: TIA. COMPARISON: March 01, 2009 TECHNIQUE: Bilateral carotid duplex scan. Stenosis estimations reflect velocity criteria that have been correlated to angiographic stenosis calculations based on distal internal carotid diameter. REPORT: RIGHT ICA: 48 cm/s peak systolic 20 cm/s end diastolic CCA: 64 cm/s peak systolic ICA/CCA peak systolic ratio: 0.75 The right common carotid artery and internal carotid artery are without evidence for significant atherosclerotic disease. Normal spectral wave forms are present throughout. Antegrade flow in the right vertebral artery. LEFT ICA: 47 cm/s peak systolic 17 cm/s end diastolic CCA: 62 cm/s peak systolic ICA/CCA peak systolic ratio: 0.75 The left common carotid artery and internal carotid artery are without evidence for significant atherosclerotic disease. Normal spectral wave forms are present throughout. Antegrade flow in the left vertebral artery. IMPRESSION: No atherosclerotic disease of the carotid arteries evident. Normal examination. CPT II Codes: 3100F
[2018-01-31] MEDS: Zolpidem TAB* 5 MG PO PRN (21:55)
[2018-01-31] MEDS: traMADol TAB* 50 MG PO PRN (21:55)
--- NOTE | 2018-01-31 22:38 | PN ---
NEUROLOGY FOLLOWUP NOTE: DATE OF FOLLOWUP: 01/31/18 LOCATION: The patient is an inpatient room 443. HOSPITALIST: Dr. Adams. CHIEF COMPLAINT: Numbness, visual changes. INTERVAL HISTORY: Since yesterday, Shayy feels well. She no longer has numbness on her face. She does not really note the visual phenomena any more. She feels well otherwise. She feels steady on her feet and has been walking around. We went over the history in more detail. She reports a history of bad headaches with photophobia. I asked her if there are any visual phenomena associated with it and she would say some times spots or lights. After numerous questions, she said that she gets headaches proceeded by visual phenomena which lasts anywhere from 2 minutes to 10 minutes which she calls "Pedro Brown Shirt." There are zig-zaggy lines and some times they are flickering and bright. She sometimes gets a bad headache which could be associated with scalp sensitivity, photophobia, and she will just want to lie down. Sometimes she has nausea with it. She has had them as recently as in the last few months. MEDICATIONS: Reviewed and she is on: 1. Omeprazole 20 mg p.o. b.i.d. 2. Tramadol 50 mg p.o. daily p.r.n. pain. 3. Ambien 5 mg p.o. p.r.n. insomnia. 4. Acetaminophen 650 mg p.o. q.6 hours p.r.n. pain. PHYSICAL EXAM: She is very thin and appears well hydrated. Temperature 98.9 temporally, blood pressure 99/65, heart rate 62 and regular, respiratory rate 16 , oxygen saturation 99% on room air. Neurological Exam: Pupils are equal and there is no ptosis. Eye movements are normal. Visual valdez are full to confrontation bilaterally in all 4 quadrants. Facial musculature is symmetric. Facial sensation to light touch is symmetric. Speech is clear. Language is fluent. Remote and recent memory are intact. IMPRESSION AND PLAN: Transient visual obscuration and sensory phenomena, which may in fact be migrainous. So far, her MRI shows chronic apparently silent small vessel disease. Her MR angiogram does not reveal any large vessel stenosis. Her blood pressure is not elevated and she is not diabetic. I recommend holding off on antiplatelet therapy given the lack of clear cerebrovascular explanation for her recent symptoms. Her echocardiogram was done this morning and if that and her carotid ultrasound did not show any actionable lesion, I think she could be discharged on her home medications. [id number]/[facility] #: [id number] LUKASZ
[2018-02-01] MEDS: traMADol TAB* 50 MG PO PRN (02:31)
[2018-02-01] MEDS: Omeprazole CAP* 20 MG PO SCH (07:51)
[2018-02-01 11:59] VITALS: BP 110/62
--- NOTE | 2018-02-02 11:09 | DS ---
CC: Dr. Liz Miller * DISCHARGE SUMMARY: DATE OF ADMISSION: 01/30/18 DATE OF DISCHARGE: 02/01/18 PRIMARY CARE PROVIDER: Dr. Liz Miller. ATTENDING FOR THIS ADMISSION: Dr. Ibarra. MY ATTENDING FOR TODAY: Dr. Ibarra.* (DICTATED BY ROSANNE NOLAN NP) HOSPITAL COURSE: This is a very pleasant 72-year-old female patient, who presented to the emergency department after she had been gardening for several days with some complaint of dizziness and visual disturbance primarily in the right periphery. The patient states she started to feel like she needed to sit down that she was going to fall over. Did not say it exactly felt like vertigo , but she did not feel right. She also had some subjective aches and pains, but no fevers or chills, and no further complaints of weakness or headache or further constitutional complaints. The patient came to the emergency department for evaluation. Of significant note, she has a history that is significant for non-Hodgkin's lymphoma, treated with chemotherapy and rituximab. She also had a history of pulmonary embolus with DVT and had a short term on Coumadin. She also then was found to have esophageal varices and gastrointestinal bleeding post chemotherapy and likely related to her Coumadin. She had banding of the varices approximately 3 years ago, chronic thrombocytopenia secondary to chemo and non-alcoholic liver cirrhosis, also attributed to prior chemotherapy. The patient had a CAT scan of the brain, which was negative for any acute findings. She also had followup echocardiogram and MRI, which also did not have any acute findings. Up to this point, her workup has been negative. She was seen by Neurology, Dr. Julio Castro, who evaluated her findings and determined her MRI showed some chronic small vessel ischemic disease. Her MRA did not reveal any stenosis or obstruction of vessels. Her symptoms actually began to resolve over the last 24 hours. Her only complaint now is some very minor visual disturbance on the right, but again no headache and no dizziness and no further symptoms since her admission. Because of her history of esophageal varices and banding, we did not recommend any kind of antiplatelet therapy, e.g., Plavix and also lack of findings on her current workup. At this point, Dr. Castro states that the patient can be discharged home on her home medications and that the symptoms could likely be attributed to some form of migraine given her significant history of chemotherapy and multiple complications related to her treatment. It is a possibility that she has some underlying conditions that she may need to be dealing with from this point forward; however, does not appear to be any acute cerebrovascular findings. As such, the patient may be discharged to home with outpatient followup. PHYSICAL EXAMINATION: On the day of discharge, vital signs: Temperature 97.7, blood pressure 110/62, heart rate 58, respiratory rate 20, O2 saturation 97% on room air. HEENT: The patient is atraumatic, normocephalic. PERRLA with nonicteric sclerae. Neck is supple and nontender. No JVD noted. No carotid bruits auscultated. Cardiovascular: S1 and S2 present. No murmurs, gallops, or rubs are appreciated. Lungs are clear bilaterally to auscultation with no wheezing, rhonchi, or rales. Abdomen: Soft, nontender, and nondistended. No organomegaly noted. She has positive bowel sounds in all 4 quadrants. : Deferred. Musculoskeletal: There is no clubbing and no cyanosis. She has no edema. She has +2 distal pulses palpable. She has a steady gait with no assistance. Neurologic: She is grossly intact with no new focalities noted. Psychiatric: She is cooperative and appropriate. LABORATORY DATA: On the day of discharge: WBC is 2.7, RBC is 3.70, hemoglobin 11.4, hematocrit 33, platelets 84. Sodium 138, potassium 3.8, chloride 110, CO2 24, BUN 13, creatinine 0.50, GFR 121.6, glucose 94, calcium 9.0, magnesium 1.8. Liver function: AST 37, ALT 19, alk phos 88. Troponin negative at 0.01. Protein 6.6, albumin 3.5. Triglycerides 75, cholesterol 113, LDL 54, HDL 43.8. TSH is 1.55. Urinalysis is negative for any acute infection. Coagulation: INR is 1.03. DISCHARGE DIAGNOSES: 1. Visual disturbance, likely migrainous 2. History of Non-Hodgkin's Lymphoma, in remission 3. History of Esophageal Varices 4. History of PE DISCHARGE MEDICATIONS: Include: 1. Ambien 5 mg at bedtime p.r.n. 2. Omeprazole 20 mg 2 times a day. 3. Tylenol as needed. DISPOSITION: The patient will be discharged to home. Follow up with her primary care provider in the next week. The patient was instructed to come back to the emergency department if she felt any further symptomatology or increase in her symptoms. The patient was discharged in stable condition. All questions were answered. The patient states her understanding of her followups and medications at the time of discharge. CONDITION ON DISCHARGE: The patient was discharged in stable condition. ROSANNE NOLAN NP [id number]/[facility] #: [id number] LUKASZ
== END 2018-02-01 16:30 | disposition home or self-care (01) ==
LOC: ED 19:21 → MEDTELE 01-30 00:29 → INTOOBSV 01-31 16:09 → OBSVTOIN 01-31 16:09
PROVIDERS: ADMIT Internal Medicine; ATTEND Internal Medicine
DX: R42 Dizziness and giddiness (principal); H53.8 Other visual disturbances; H53.9 Unspecified visual disturbance; Z85.72 Personal history of non-Hodgkin lymphomas; Z79.01 Long term (current) use of anticoagulants; Z92.21 Personal history of antineoplastic chemotherapy; K74.60 Unspecified cirrhosis of liver; K27.9 Peptic ulcer, site unspecified, unspecified as acute or chronic, without hemorrhage or perforation; I85.00 Esophageal varices without bleeding
CPT/HCPCS: 36415; 70450; 70544; 70551; 80048; 80053; 80061; 81003; 81015; 83605; 83735; 84443; 84484; 85025; 85060; 85610; 85652; 87086; 93005; 93306; 93880; 99284; A9270-GY; G0378; J3475